=== PATIENT | female | born 1975 | race Caucasian/White ===

== ENCOUNTER 2023-06-19 19:08 | Outpatient (REF) | payer BC, SELFPAY ==
[2023-06-19 16:34] LABS: FREE T4 0.93 ng/dL (0.76-1.46); TSH 9.23 uIU/mL (0.36-3.74)
== END 2023-06-19 19:09 | disposition home or self-care (01) ==
LOC: NCHCN 19:08
PROVIDERS: PCP Family Medicine; Visit Provider Nurse Practitioner Family
DX: E03.9 Hypothyroidism, unspecified (principal)
CPT/HCPCS: 84439; 84443

== ENCOUNTER 2023-08-21 19:10 | Outpatient (REF) | payer BC, SELFPAY ==
[2023-08-21 17:08] LABS: FREE T4 0.92 ng/dL (0.76-1.46)
== END 2023-08-21 19:11 | disposition home or self-care (01) ==
LOC: NCHCN 19:10
PROVIDERS: PCP Family Medicine; Visit Provider Nurse Practitioner Family
DX: E03.9 Hypothyroidism, unspecified (principal)
CPT/HCPCS: 84439; 84443

== ENCOUNTER 2023-10-24 10:50 | Outpatient (REF) | payer BC, SELFPAY ==
[2023-10-24 15:06] LABS: FREE T4 0.76 ng/dL (0.76-1.46); TSH 22.42 uIU/mL (0.36-3.74)
== END 2023-10-24 10:51 | disposition home or self-care (01) ==
LOC: NCHCN 10:50
PROVIDERS: PCP Family Medicine; Visit Provider Nurse Practitioner Family
DX: E03.9 Hypothyroidism, unspecified (principal)
CPT/HCPCS: 84439; 84443

== ENCOUNTER 2024-03-08 17:04 | Outpatient (REF) | payer BC, SELFPAY ==
[2024-03-08 16:17] LABS: HCT 38.3 % (36.0-46.0); HGB 12.7 g/dL (11.2-15.7); MCH 30.8 pg (27.0-33.0); MCHC 33.2 % (32.0-36.0); MCV 93 fL (80-95); MPV 11.9 fL (8.0-11.0); Platelet Count 152 10^3/uL (130-400); RBC 4.13 10^6/uL (3.93-5.22); RDW 12.4 % (11.7-14.6); RDW-SD 42.8 fL; WBC 3.66 10^3/uL (4.4-10.8)
[2024-03-08 16:44] LABS: Hemoglobin A1C 5.5 % (<5.7)
[2024-03-08 17:06] LABS: Ferritin 43 ng/mL (8-252); TSH 7.15 uIU/Ml (0.36-3.74); Vitamin B12 612 pg/mL (193-986)
[2024-03-08 17:07] LABS: Folate > 20.0 ng/mL (8.6-20.0)
[2024-03-08 17:25] LABS: FREE T4 0.88 ng/dL (0.76-1.46)
== END 2024-03-08 17:05 | disposition home or self-care (01) ==
LOC: NCHCN 17:04
PROVIDERS: PCP Family Medicine; Visit Provider Nurse Practitioner Family
DX: E03.9 Hypothyroidism, unspecified (principal)
CPT/HCPCS: 85027; 82607; 82728; 82746; 83036; 84439; 84443